=== PATIENT | male | born 1980 | race Caucasian/White ===

== ENCOUNTER → 2017-03-03 | Outpatient (CLI) | payer OTHER ==
--- NOTE | 2017-03-03 16:03 | DIAGNOSTIC IMAGING REPORT ---
LEFT EXTREMITY NONVASCULAR LIMITED CLINICAL HISTORY: HAMSTRING Injury, left trauma. Pain. TECHNIQUE: Ultrasound COMPARISON STUDY: None FINDINGS: Findings consistent with mild soft tissue edematous change posterior and lateral to the left knee. No significant joint effusion is identified. No major collection is identified. IMPRESSION: Nonspecific soft tissue edema lateral and posterior to the left knee. The above report was generated using voice recognition software. It may contain grammatical, syntax or spelling errors. Electronically signed by: Lalo Gant M.D. 03/03/2017 4:02 PM Dictated Date/Time: 03/03/2017 4:00 PM
== END | disposition home or self-care (01) ==
LOC: C.ULTR 15:36
PROVIDERS: ATTEND Family Medicine
DX: S76.302A Unspecified injury of muscle, fascia and tendon of the posterior muscle group at thigh level, left thigh, initial encounter (principal); M25.462 Effusion, left knee; X58.XXXA Exposure to other specified factors, initial encounter